=== PATIENT | female | born 1990 | race Caucasian/White ===

== ENCOUNTER 2016-04-04 16:40 | Emergency (ER) | payer OTHER | END 2016-04-04 18:25 | disposition left against medical advice (07) | LOC: M ED 16:40 | DX: Z53.29 Procedure and treatment not carried out because of patient's decision for other reasons (principal) ==

== ENCOUNTER → 2016-04-08 | Outpatient (CLI) | payer OTHER ==
--- NOTE | 2016-04-08 08:43 | REP ---
Pelvic ultrasound: History: History of two prior ruptured hemorrhagic cysts. Comparison pelvic sonography February 27, 2016. Findings: Transabdominal and transvaginal scanning are performed. Uterine dimensions are normal measured at 7.6 x 3.5 x 3.9 cm. Endometrial echo is 0.9 cm and centrally placed. No focal liver mass lesion is seen. There is a trace of fluid in the cul-de-sac and left adnexal region. There is a 6.6 x 5.1 x 5.1 cm hypoechoic cyst consistent with a hemorrhagic cyst in the left adnexa adjacent to the left ovary. Inclusive dimensions for the left ovary are 7.8 x 6.5 x 6.8 cm. A normal right ovary is seen measuring 3.9 x 2.0 x 2.6 cm. Impression: Hypoechoic cyst in the left ovary 6.6 cm in greatest diameter consistent with hemorrhagic cyst. Normal Doppler flow is recorded to both ovaries. Resistive indices are 0.56 and 0.49 on the right and left respectively. No other abnormality. Signed by Manohar Sosa MD 04/08/2016 09:23 A
== END ==
LOC: M RAD 07:09
PROVIDERS: ATTEND Family Medicine
DX: N83.209 Unspecified ovarian cyst, unspecified side (principal)

== ENCOUNTER → 2016-04-20 | Outpatient (CLI) | payer OTHER ==
[2016-04-20 10:54] LABS: HCG, SERUM QUANTITATIVE < 1.0 MIU/ML
[2016-04-20 10:56] LABS: ESTRADIOL 38.1 PG/ML; FOLLICLE STIMULATING HORMONE 6.8 mIU/mL; LUTEINIZING HORMONE 5.3 mIU/mL; PROGESTERONE 0.7 NG/ML
== END ==
LOC: M LAB 10:03
PROVIDERS: ATTEND Obstetrics & Gynecology Reproductive Endocrinology
DX: E28.9 Ovarian dysfunction, unspecified (principal)

== ENCOUNTER → 2016-04-26 | Outpatient (CLI) | payer OTHER ==
--- NOTE | 2016-04-26 08:58 | REP ---
Clinical: Infertility. Technique: Transvaginal pelvic ultrasound. Comparison: 04/08/2016. Findings: Normal anteverted uterus measures 6.9 x 2.5 x 4.1 cm. Endometrial complex measures 3.2 mm thickness. No discrete uterine or endometrial abnormalities are appreciated. Trace pelvic free fluid is nonspecific. No adnexal mass lesion. Right ovary measures 3.6 x 2.2 x 3.4 cm and includes innumerable sub centimeter follicles. Left ovary measures 3.9 x 2.5 x 2.9 cm and includes 2.4 cm hemorrhagic cyst, 11 mm follicle, and innumerable sub centimeter follicles. Impression: Normal uterus. Ovaries and associated follicles as described above. Signed by Hieu Zuniga MD 04/26/2016 08:50 A
[2016-04-26 11:49] LABS: LUTEINIZING HORMONE 12.9 mIU/mL; PROGESTERONE 0.7 NG/ML
[2016-04-26 11:50] LABS: ESTRADIOL 25.6 PG/ML
== END ==
LOC: M RAD 08:09 → M LAB 08:09
PROVIDERS: ATTEND Obstetrics & Gynecology Reproductive Endocrinology
DX: N97.9 Female infertility, unspecified (principal)

== ENCOUNTER → 2016-05-21 | Outpatient (REF) | payer OTHER | LOC: M SFHCLERA 14:25 | PROVIDERS: ATTEND Nurse Practitioner Family | DX: J02.9 Acute pharyngitis, unspecified (principal) ==